=== PATIENT | female | born 1975 ===

== ENCOUNTER 2021-08-25 11:58 | Emergency (ER) | payer OTHER ==
[~2021-08-25] VITALS: Ht 160 cm; Wt 68.0 kg
[2021-08-25] MEDS ORDERED: FAMOTIDINE 20 MG/2 ML VIAL IVP ONE (12:15)
[2021-08-25] MEDS ORDERED: KETOROLAC 15 MG/ML VIAL. IVP ONE (12:15)
[2021-08-25] MEDS ORDERED: IV NORMAL SALINE 1,000ML 1,000 ML IV ONE (12:15)
[2021-08-25] MEDS ORDERED: ONDANSETRON PF 4 MG/2 ML VIAL. IVP ONE ×2 (12:15→14:00)
[2021-08-25 12:43] LABS: BASO % 1 % (0-3); EOS # 0.2 x10^3/uL (0.0-0.7); EOS % 2 % (0-3); HEMATOCRIT 43.7 % (36.0-47.0); HEMOGLOBIN 14.8 g/dL (12.0-15.5); LYMPH # 2.6 x10^3/uL (1.0-4.8); LYMPH % 39 % (24-48); MEAN CORPUSCULAR HEMOGLOBIN 29 pg (25-35); MEAN CORPUSCULAR HGB CONC 34 g/dL (31-37); MEAN CORPUSCULAR VOLUME 86 fL (79-100); MONO # 0.3 x10^3/uL (0.0-1.1); MONO % 5 % (0-9); NEUT # 3.5 x10^3uL (1.8-7.7); NEUT % 53 % (31-73); PLATELET COUNT 268 x10^3/uL (140-400); RED CELL DISTRIBUTION WIDTH 14.4 % (11.5-14.5); WHITE BLOOD COUNT 6.6 x10^3/uL (4.0-11.0)
--- NOTE | 2021-08-25 12:55 | RAD ---
EXAMINATION: CT abdomen and pelvis without IV contrast. INDICATION:46 years, Female, right lower quadrant pain. TECHNIQUE: Axial CT images of the abdomen and pelvis were obtained. Coronal and sagittal reformatted performed. COMPARISON: None. Exposure: One or more of the following individualized dose reduction techniques were utilized for thi s examination: 1. Automated exposure control 2. Adjustment of the mA and/or kV according to patient size 3. Use of iterative reconstruction technique. FINDINGS: LOWER CHEST: Lung bases are clear. Heart size normal. ABDOMEN/PELVIS: Diffuse hepatic steatosis. No suspicious hepatic lesions. Gallbladder is surgically absent. No pathol ogic dilation of the intra or extrahepatic biliary ducts. The spleen, and pancreas, are unremarkable. The right kidney is mildly edematous with minimal perinephric stranding. There is mild to moderate h ydroureteronephrosis with a 4 mm calculus at the right distal ureter at the level of the ureterovesi hawk junction as seen on image 121/2 with associated periureteral inflammatory changes. There are a fe w nonobstructing calculi within the left kidney. Adrenal glands are unremarkable. No evidence of left hydroureteronephrosis. Postsurgical changes of Maryam-en-Y gastric bypass are demonstrated. This is incompletely evaluated wit hout oral contrast. There is no evidence of obstruction in the jejunum. The jejunojejunostomy appears intact. There is a 5-6 mm appendicolith within the otherwise normal-appearing appendix. No free intr a-abdominal air or free fluid. No pathologically enlarged abdominal or pelvic lymph nodes. There appe ars to be no evidence of obstruction or inflammatory process within the colon. Moderate colonic stool burden. Uterus is absent. No suspicious adnexal masses. Urinary bladder is decompressed precluding complete e valuation. Small fat-containing periumbilical hernia. Prograf no evidence of acute or suspicious osseous abnorma lity. IMPRESSION: 1. Mild to moderate right obstructive uropathy secondary to 4 mm distal ureteral calculus. 2. Additional punctate nonobstructing bilateral renal calculi. 3. 5 to 6 mm appendicolith with no associated inflammatory signs to suggest acute appendicitis. 4. Diffuse hepatic steatosis. 5. Postoperative changes of Maryam-en-Y gastric bypass without discrete evidence of acute process. Electronically signed by: Bull Carbajal DO (08/25/2021 12:52 PM) [id number]
[2021-08-25 13:02] LABS: CALCIUM 9.5 mg/dL (8.5-10.1); CREATININE 0.9 mg/dL (0.6-1.0); GFR 67.4; POTASSIUM 3.4 mmol/L (3.5-5.1)
[2021-08-25 13:09] LABS: ALBUMIN 3.5 g/dL (3.4-5.0); MAGNESIUM 2.1 mg/dL (1.8-2.4); TOTAL BILIRUBIN 0.6 mg/dL (0.2-1.0); TOTAL PROTEIN 6.9 g/dL (6.4-8.2)
[2021-08-25 13:40] LABS: BILIRUBIN,URINE NEG (NEG); CLARITY,URINE HAZY; COLOR,URINE YELLOW; GLUCOSE,URINE NEG (NEG)
[2021-08-25 13:41] LABS: BACTERIA,URINE 0 /HPF (0-FEW); NITRITE,URINE NEG (NEG); SQUAMOUS EPITHELIAL CELL,UR MANY /LPF
--- NOTE | 2021-08-25 13:50 | PHYS DOC ---
Past History Past Surgical History: Cervical Fusion, Cholecystectomy, Gastric Bypass, Hysterectomy, Tonsillectomy Additional Past Surgical Histo: carpal tunnel Alcohol Use: None General Adult EDM: Chief Complaint: ABDOMINAL PAIN HPI: HPI: Patient is a [age] year old [sex] who presents with [] Review of Systems: Review of Systems: Constitutional: Denies fever or chills Eyes: Denies change in visual acuity HENT: Denies nasal congestion or sore throat Respiratory: Denies cough or shortness of breath Cardiovascular: Denies chest pain or edema GI: Denies abdominal pain, nausea, vomiting, bloody stools or diarrhea : Denies dysuria Musculoskeletal: Denies back pain or joint pain Integument: Denies rash Neurologic: Denies headache, focal weakness or sensory changes Endocrine: Denies polyuria or polydipsia Lymphatic: Denies swollen glands Psychiatric: Denies depression or anxiety Current Medications: Current Meds: Current Medications Medications (Trade) Dose Ordered Sig/Andrew Start Time Stop Time Status Last Admin Dose Admin Famotidine (Pepcid Vial) 20 mg 1X ONCE 08/25/21 12:15 08/25/21 12:58 DC 08/25/21 12:34 20 MG Ketorolac Tromethamine (Toradol 15mg Vial) 15 mg 1X ONCE 08/25/21 12:15 08/25/21 12:58 DC 08/25/21 12:35 15 MG Ondansetron HCl (Zofran) 4 mg 1X ONCE 08/25/21 12:15 08/25/21 12:58 DC 08/25/21 12:32 4 MG Sodium Chloride 1,000 ml @ 1,000 mls/hr 1X ONCE 08/25/21 12:15 08/25/21 13:14 DC 08/25/21 12:31 1,000 MLS/HR Allergies: Allergies: Allergies Coded Allergies Type Severity Reaction Last Updated Verified Iodine and Iodide Containing Produc Allergy Unknown Anaphylaxis 08/25/21 Yes Penicillins Allergy Unknown 08/25/21 Yes fentanyl Allergy Unknown 08/25/21 Yes morphine Allergy Unknown 08/25/21 Yes Uncoded Allergies Type Severity Reaction Last Updated Verified TAPE Allergy Unknown 08/25/21 Physical Exam: PE: Constitutional: Well developed, well nourished, no acute distress, non-toxic appearance HENT: Normocephalic, atraumatic Eyes: PERRL, EOMI, conjunctiva normal, no discharge Neck: Normal range of motion, no tenderness, supple Lungs & Thorax: No respiratory distress, equal chest rise and fall Abdomen: Soft, no tenderness Skin: Warm, dry, no erythema, no rash Back: No tenderness, no CVA tenderness Extremities: No tenderness, ROM intact, no edema Neurologic: Alert and oriented X 3, normal motor function, normal sensory function, no focal deficits noted Psychologic: Affect normal, judgment normal Current Patient Data: Labs: Laboratory Tests Test 08/25/21 12:10 White Blood Count 6.6 x10^3/uL (4.0-11.0) Red Blood Count 5.10 x10^6/uL (3.50-5.40) Hemoglobin 14.8 g/dL (12.0-15.5) Hematocrit 43.7 % (36.0-47.0) Mean Corpuscular Volume 86 fL (79-100) Mean Corpuscular Hemoglobin 29 pg (25-35) Mean Corpuscular Hemoglobin Concent 34 g/dL (31-37) Red Cell Distribution Width 14.4 % (11.5-14.5) Platelet Count 268 x10^3/uL (140-400) Neutrophils (%) (Auto) 53 % (31-73) Lymphocytes (%) (Auto) 39 % (24-48) Monocytes (%) (Auto) 5 % (0-9) Eosinophils (%) (Auto) 2 % (0-3) Basophils (%) (Auto) 1 % (0-3) Neutrophils # (Auto) 3.5 x10^3uL (1.8-7.7) Lymphocytes # (Auto) 2.6 x10^3/uL (1.0-4.8) Monocytes # (Auto) 0.3 x10^3/uL (0.0-1.1) Eosinophils # (Auto) 0.2 x10^3/uL (0.0-0.7) Basophils # (Auto) 0.0 x10^3/uL (0.0-0.2) Sodium Level 143 mmol/L (136-145) Potassium Level 3.4 mmol/L (3.5-5.1) L Chloride Level 105 mmol/L (98-107) Carbon Dioxide Level 24 mmol/L (21-32) Anion Gap 14 (6-14) Blood Urea Nitrogen 13 mg/dL (7-20) Creatinine 0.9 mg/dL (0.6-1.0) Estimated GFR (Cockcroft-Gault) 67.4 BUN/Creatinine Ratio 14 (6-20) Glucose Level 124 mg/dL (70-99) H Calcium Level 9.5 mg/dL (8.5-10.1) Magnesium Level 2.1 mg/dL (1.8-2.4) Total Bilirubin 0.6 mg/dL (0.2-1.0) Aspartate Amino Transferase (AST) 37 U/L (15-37) Alanine Aminotransferase (ALT) 61 U/L (14-59) H Alkaline Phosphatase 138 U/L (46-116) H Total Protein 6.9 g/dL (6.4-8.2) Albumin 3.5 g/dL (3.4-5.0) Albumin/Globulin Ratio 1.0 (1.0-1.7) Lipase 243 U/L (73-393) Vital Signs: Vital Signs Date Time Temp Pulse Resp B/P (MAP) Pulse Ox O2 Delivery O2 Flow Rate FiO2 08/25/21 12:00 97.7 68 22 149/89 (109) 100 EKG: EKG: [] Radiology/Procedures: Radiology/Procedures: PROCEDURE: CT ABDOMEN PELVIS WO CONTRAST EXAMINATION: CT abdomen and pelvis without IV contrast. INDICATION:46 years, Female, right lower quadrant pain. TECHNIQUE: Axial CT images of the abdomen and pelvis were obtained. Coronal and sagittal reformatted performed. COMPARISON: None. Exposure: One or more of the following individualized dose reduction techniques were utilized for this examination: 1. Automated exposure control 2. Adjustment of the mA and/or kV according to patient size 3. Use of iterative reconstruction technique. FINDINGS: LOWER CHEST: Lung bases are clear. Heart size normal. ABDOMEN/PELVIS: Diffuse hepatic steatosis. No suspicious hepatic lesions. Gallbladder is surgically absent. No pathologic dilation of the intra or extrahepatic biliary ducts. The spleen, and pancreas, are unremarkable. The right kidney is mildly ed ematous with minimal perinephric stranding. There is mild to moderate hydroureteronephrosis with a 4 mm calculus at the right distal ureter at the level of the ureterovesical junction as seen on image 121/2 with associated periureteral inflammatory changes. There are a few nonobstructing calculi within the left kidney. Adrenal glands are unremarkable. No evidence of left hydrouret eronephrosis. Postsurgical changes of Maryam-en-Y gastric bypass are demonstrated. This is incompletely evaluated without oral contrast. There is no evidence of obstruction in the jejunum. The jejunojejunostomy appears intact. There is a 5-6 mm appendicolith within the otherwise normal-appearing appendix. No free intra- abdominal air or free fluid. No pathologically enlarged abdominal or pelvic lymph nodes. There appears to be no evidence of obstruction or inflammatory process within the colon. Moderate colonic stool burden. Uterus is absent. No suspicious adnexal masses. Urinary bladder is decompressed precluding complete evaluation. Small fat-containing periumbilical hernia. Prograf no evidence of acute or suspicious osseous abnormality. IMPRESSION: 1. Mild to moderate right obstructive uropathy secondary to 4 mm distal ureteral calculus. 2. Additional punctate nonobstructing bilateral renal calculi. 3. 5 to 6 mm appendicolith with no associated inflammatory signs to suggest acute appendicitis. 4. Diffuse hepatic steatosis. 5. Postoperative changes of Maryam-en-Y gastric bypass without discrete evidence of acute process. Electronically signed by: Bull Carbajal DO (08/25/2021 12:52 PM) [id number] Heart Score: C/O Chest Pain: N/A Course & Med Decision Making: Course & Med Decision Making Pertinent Labs and Imaging studies reviewed. (See chart for details) Patient stable for discharge with outpatient follow-up with PCP. Discussed findings and plan with patient, who acknowledges understanding and agreement. Nida Disclaimer: Nida Disclaimer: This electronic medical record was generated, in whole or in part, using a voice recognition dictation system. Departure Departure: Impression: Primary Impression: Kidney stone on right side Additional Impression: Appendicolith Disposition: HOME / SELF CARE / HOMELESS Condition: STABLE Referrals: NON,STAFF (PCP) CAROL FAY MD Patient Instructions: Diet for Kidney Stones, Kidney Stones, [id number] Additional Instructions: Increase fluid hydration. Scripts Tamsulosin Hcl (FLOMAX) 0.4 Mg Cap.er.24h 1 CAP PO DAILY for Kidney stone, #10 CAP Prov: BREANNE HARMON DO 08/25/21 Ondansetron (ONDANSETRON ODT) 4 Mg Tab.rapdis 1 TAB PO PRN Q6-8HRS PRN for NAUSEA, #16 TAB Prov: BREANNE HARMON DO 08/25/21 Hydrocodone Bit/Acetaminophen (HYDROCODONE-APAP 5-325 ) 1 Each Tablet 0.5-1 TAB PO PRN Q6HRS PRN for PAIN, #10 TAB 0 Refills Prov: BREANNE HARMON DO 08/25/21 BREANNE HARMON DO Aug 25, 2021 13:50
[2021-08-25] MEDS ORDERED: TAMSULOSIN 0.4 MG CAP.ER.24H. PO ONE (14:00)
[2021-08-25] MEDS ORDERED: HYDROcodone/APAP 5/325MG 1 TAB TABLET PO ONE (14:00)
[2021-08-25] MEDS ORDERED: HYDR-2155 PO (14:05)
[2021-08-25] MEDS ORDERED: ONDA4TAB12 PO (14:05)
[2021-08-25] MEDS ORDERED: TAMS0.4C97 PO (14:05)
[2021-08-25 14:40] VITALS: BP 131/87
== END 2021-08-25 14:50 | disposition home or self-care (01) ==
LOC: ER 11:58
DX: N20.0 Calculus of kidney (principal); K38.1 Appendicular concretions; Z90.49 Acquired absence of other specified parts of digestive tract; Z90.710 Acquired absence of both cervix and uterus; Z90.89 Acquired absence of other organs
CPT/HCPCS: 36415; 74176; 80053; 81001; 83690; 83735; 85025; 87086; 96361; 96374; 96375; 96376; 99285; J1885; J2405; J3490; J7030; 87077; 87186